=== PATIENT | male | born 1945 | race Caucasian/White ===

== ENCOUNTER → 2024-12-21 | Outpatient (CLI) | payer MEDICARE, BC, SELFPAY ==
[2024-12-21 12:09] LABS: Basophils % (Auto) 1 % (0-2.5); Eosinophils # (Auto) 0.1 Thou/mm3 (0.0-0.5); Eosinophils % (Auto) 1 % (0-10); Hematocrit 44.7 % (41.0-53.0); Immature Granulocytes % (Auto) 0 % (0-0); Immature Granulocytes Auto 0.02 Thou/mm3 (0.00-0.00); Lymphocytes # (Auto) 1.8 Thou/mm3 (1.0-4.8); Lymphocytes % (Auto) 33 % (10-50); Mean Corpuscular HGB Conc 33.6 g/dl (31.0-37.0); Mean Corpuscular Hemoglobin 30.9 pg (25.0-35.0); Mean Corpuscular Volume 92 fL (80-100); Monocytes # (Auto) 0.5 Thou/mm3 (0.0-0.8); Monocytes % (Auto) 8 % (0-12); Neutrophils # (Auto) 3.2 Thou/mm3 (1.8-7.7); Neutrophils % (Auto) 57 % (37-80); Nucleated Red Blood Cell % 0 /100 WBC (0); Platelet Count 148 Thou/mm3 (140-440); RDW Standard Deviation 44.3 fL (35.1-43.9); Red Blood Count 4.85 Miln/mm3 (4.50-5.90); White Blood Count 5.6 Thou/mm3 (3.8-10.6)
[2024-12-21 12:24] LABS: Prostate Specific Antigen 0.21 ng/mL (0-4.00)
[2024-12-21 12:28] LABS: Alanine Aminotransferase 22 U/L (10-49); Albumin, Serum 4.2 gm/dL (3.4-4.8); Albumin/Globulin Ratio 2.1 (1.2-2.2); Alkaline Phosphatase 81 U/L (46-116); Anion Gap 6 (7-16); Aspartate Amino Transferase 30 U/L (0-34); BUN/Creatinine Ratio 26 Ratio (12-20); Blood Urea Nitrogen 26 mg/dL (9-23); Calcium 9.8 mg/dL (8.3-10.6); Calcium (Corrected) 9.8 mg/dL (8.5-10.1); Cardiac Risk Estimate 5.3 RATIO (4.0-6.7); Chloride 106 mMol/L (98-107); Cholesterol 291 mg/dL (132-200); Glucose 94 mg/dL (74-106); HDL Cholesterol 55 mg/dL (40-60); LDL Cholesterol,Calculated 219 mg/dL (0-130); Osmolality,Calculated 285 (275-295); Potassium 4.8 mMol/L (3.4-5.1); Sodium 141 mMol/L (136-145); Total Protein 6.2 gm/dL (5.7-8.2); Triglycerides 83 mg/dL (30-150); eGFR > 60 See Note
== END | disposition home or self-care (01) ==
LOC: COPL 11:35
PROVIDERS: PCP Internal Medicine Hospice and Palliative Medicine; Referring Provider Internal Medicine Hospice and Palliative Medicine; Visit Provider Internal Medicine Hospice and Palliative Medicine
DX: I10 Essential (primary) hypertension (principal); Z12.9 Encounter for screening for malignant neoplasm, site unspecified
CPT/HCPCS: 36415; 80053; 80061; 84153; 85025

== ENCOUNTER 2025-10-21 05:41 | Emergency (ER) | payer MEDICARE, BC, SELFPAY ==
[2025-10-21 05:42] VITALS: BMI 23.3
[2025-10-21 05:47] VITALS: BP 138/79; PULSE 61; RESP 18; TEMP 36.4; O2SAT 97
--- NOTE | 2025-10-21 05:50 | XR_ITS ---
EXAMINATION: AP chest single view TECHNIQUE: AP portable upright chest single view Date and time: October 21, 2025, 0611 hours INDICATIONS: Chest pain shortness of breath dizziness beginning 2 hours ago FINDINGS: Normal heart size No pneumonia or pulmonary edema Severe osteopenia IMPRESSION: No pneumonia or pulmonary edema
--- NOTE | 2025-10-21 05:51 | PD.EDRME ---
Rapid Medical Screening Exam RME Arrival date/time: 10/21/25 05:41 80M with history of BPH presents to ED with 1 hour of sudden burning chest pain and dizziness after he had a non-bloody BM. Chief Complaint: Chest Pain Time Seen by Provider: 10/21/25 06:04 Vital signs: Vital Signs Temperature 97.5 F 10/21/25 05:47 Pulse Rate 61 10/21/25 05:47 Respiratory Rate 18 10/21/25 05:47 Blood Pressure 138/79 H 10/21/25 05:47 Pulse Oximetry (%) 97 10/21/25 05:47 Oxygen Delivery Method Room Air 10/21/25 05:47 Exam: Clear lungs and normal WOB. RRR. Speech normal. No ab tenderness. Clinical Impression: ACS vs PE vs gastritis/GERD vs vasovagal response
[2025-10-21 05:58] VITALS: PULSE 72
[2025-10-21] MEDS: ONDANSETRON ODT 4 MG TABRAP PO (06:03)
--- NOTE | 2025-10-21 06:17 | EDNOTE_ITS ---
ED Chest Pain RME/HPI General Chief Complaint: Chest Pain Stated Complaint: CHEST PAIN, DIZZINESS, NAUSEA Time Seen by Provider: 10/21/25 06:04 Arrival date/time: 10/21/25 05:41 RME / HPI RME / HPI narrative: 10/21/25 05:41 80M with history of BPH presents to ED with 1 hour of sudden burning chest pain and dizziness after he had a non-bloody BM. DR CRAVEN MAIN ED EVALUATION: 80 yo male patient with no significant past medical history c/o substernal/epigastric chest pain with numbness radiating to the left axilla which woke him from sleep lasting approximately 45 minutes. Patient states he thought he may be having a heart attack. Last time he had similar symptoms was 30 years ago and had a negative angiogram. Takes doxazosin for BPH. No h/o smoking. Pain resolved without intervention. Exam: Clear lungs and normal WOB. RRR. Speech normal. No ab tenderness. Impression: ACS vs PE vs gastritis/GERD vs vasovagal response Related Data Allergies Allergy/AdvReac Type Severity Reaction Status Date / Time nitroglycerin Allergy Severe LOOSING Verified 10/21/25 05:44 CONCOUSNESS Penicillins Allergy Severe HIVES Verified 10/21/25 05:44 Review of Systems Review of Systems Systems Reviewed: All systems reviewed, normal except as documented Narrative Review of Systems: CONST: Negative for fever, body aches and chills. HENT: Negative for neck pain/stiffness, headache, congestion, sore throat, swelling. EYES: Negative for discharge/pain or vision changes. RESP: Negative for cough/hemoptysis and shortness of breath. CV: Positive chest pain, negative difficulty breathing, palpitations. ABD: Negative pain, nausea, vomiting. : Negative increase frequency, dysuria, blood in urine or stool. MUSC: Negative for muscle aches, edema. SKIN: Negative rash, lesions/sores. NEURO: Negative headache, dizziness, weakness. ED Exam Narrative Physical exam: GENERAL APPEARANCE: alert and oriented x 4, well-developed, well-nourished, no acute distress HEENT: Normocephalic, atraumatic; pupils equal, round, reactive to light; EOMI; mucous membranes pink, moist; oropharynx clear NECK: Supple LUNGS: CTABL; no wheezes, no rales, no rhonchi HEART: Regular rate, regular rhythm; normal S1, S2; no murmurs ABDOMEN: non distended; normal BS; soft, no tenderness, no guarding, no rebound; no masses, no organomegaly, no hernia BACK: no CVA tenderness EXTREMITIES: atraumatic; no edema NEUROLOGIC: awake; alert and oriented x4; cranial nerves II-XII grossly intact; no focal sensory or motor deficits PSYCHIATRIC: appropriate mood and affect SKIN: warm, dry, normal color; no rashes Course Quality Measures none Orders Category Date Time Status Academic Success Coordinator Q4H START 00 Care 10/21/25 05:51 Completed EKG (ED ONLY) *Do not use* NOW Care 10/21/25 05:41 Completed EKG (ED Only) Stat Exams 10/21/25 05:41 Ordered XR chest 1V portable Stat Exams 10/21/25 05:50 Completed CBC Stat Lab 10/21/25 06:07 Completed Comprehensive Metabolic Panel Stat Lab 10/21/25 06:07 Completed Magnesium Stat Lab 10/21/25 06:07 Completed Partial Thromboplastin Time Stat Lab 10/21/25 06:07 Completed Prothrombin Time with INR Stat Lab 10/21/25 06:07 Completed Troponin I Stat Lab 10/21/25 06:07 Completed Troponin I Stat Lab 10/21/25 10:21 Completed Aspirin Med 10/21/25 05:50 Discontinued 325 mg PO X1 ONE Ondansetron Odt [Zofran Odt] Med 10/21/25 05:50 Discontinued 4 mg PO X1 ONE Vital Signs Vital signs: Vital Signs Temperature 97.5 F 10/21/25 05:47 Pulse Rate 61 10/21/25 05:47 Respiratory Rate 18 10/21/25 05:47 Blood Pressure 138/79 H 10/21/25 05:47 Pulse Oximetry (%) 97 10/21/25 05:47 Oxygen Delivery Method Room Air 10/21/25 05:47 Chest Pain Patient data External records reviewed:: [facility] previous records (No previous records) Clinical information provided by:: patient Social determinants that could affect healthcare access:: none Patient has the following chronic illnesses:: BPH How is presenting disease/condition affected by chronic disease/condition?: uneffected by Evaluation data The following diagnostics were reviewed and interpreted by me:: lab results, radiology exam(s) and EKG tracing(s) Lab and/or radiology exams considered but not ordered:: none Interpretation Summary: Chest Xray 1 view AP portable interpreted by me: good inspiratory effort, minimal rotation, normal mediastinum, trachea midline, normal bony alignment, normal cardiac shadow, diaphragms well-defined, no effusions, lung barton clear, gastric bubble visualized below left diaphragm, normal pulmonary artery contour, no acute process EKG interpreted by me: Sinus rhythm 62, regularly irregular, normal axis, no acute ischemic changes Lab results interpreted by me: CBC and chemistry unremarkable, troponin not elevated, all interpreted as within normal limits Medications / Prescriptions Medications or Prescriptions considered but not ordered:: Considered nitroglycerin, considered heparin Medication administrations:: Medication Administration History Discontinued Medications Aspirin (Aspirin 325 Mg Tablet) 325 mg PO X1 ONE Stop: 10/21/25 05:51 Last Admin: 10/21/25 06:03 Dose: 325 mg Documented By: SERAFIN Ondansetron HCl (Ondansetron Odt 4 Mg Tabrap) 4 mg PO X1 ONE; Protocol Stop: 10/21/25 05:51 Last Admin: 10/21/25 06:03 Dose: 4 mg Documented By: SERAFIN as above Consultations Consultation(s) initiated? (list below): No Diagnosis Chest Pain Differential Diagnosis: stable angina, unstable angina pectoris, atypical chest pain, st elevation myocardial infarction, costochondritis and chest pain Most likely diagnosis given after review of the tests above:: Chest pain Admission Indicated Admission indicated?: not indicated Admission Request Was there a request for admission?: No Disposition Plan Disposition Plan: Discharge Discharge Attestation Discharge Attestation: The patient and all family members were given an opportunity to ask questions and understood the discharge instructions. Discharge instructions specifically effects, indications for sooner follow up or return to the emergency department, and the expected course of current diagnosis. Patient condition: Stable Discharge Plan Plan Patient Disposition: HOME (Self Care) Prescriptions/Referrals Referrals: Michael Randall MD [Primary Care Provider] - In 1 week Problem List Clinical Impression: Chest pain, Epigastric abdominal pain Patient/Caregiver Discharge Instructions Education Materials: ED Chest Pain, Uncertain Cause, ED Epigastric Pain (Uncertain Cause) Print Language: Eritrean Stand Alone Forms: [facility] Award Info., Patient Portal Info Letter
[2025-10-21 06:40] LABS: Basophils # (Auto) 0.0 Thou/mm3 (0.0-0.2); Basophils % (Auto) 0 % (0-2.5); Eosinophils # (Auto) 0.1 Thou/mm3 (0.0-0.5); Eosinophils % (Auto) 1 % (0-10); Hematocrit 42.8 % (41.0-53.0); Hemoglobin 14.4 g/dL (13.5-16.0); Immature Granulocytes Auto 0.02 Thou/mm3 (0.00-0.00); Lymphocytes # (Auto) 1.8 Thou/mm3 (1.0-4.8); Lymphocytes % (Auto) 20 % (10-50); Mean Corpuscular HGB Conc 33.6 g/dl (31.0-37.0); Mean Corpuscular Hemoglobin 31.0 pg (25.0-35.0); Mean Corpuscular Volume 92 fL (80-100); Monocytes # (Auto) 0.5 Thou/mm3 (0.0-0.8); Monocytes % (Auto) 6 % (0-12); Neutrophils # (Auto) 6.5 Thou/mm3 (1.8-7.7); Neutrophils % (Auto) 73 % (37-80); Nucleated Red Blood Cell # 0.00 Thou/mm3 (0.00-0.00); Nucleated Red Blood Cell % 0 /100 WBC (0); Platelet Count 148 Thou/mm3 (140-440); RDW Standard Deviation 42.9 fL (35.1-43.9); Red Blood Count 4.65 Miln/mm3 (4.50-5.90); White Blood Count 8.9 Thou/mm3 (3.8-10.6)
[2025-10-21 07:07] LABS: Alanine Aminotransferase 18 U/L (10-49); Albumin, Serum 4.3 gm/dL (3.4-4.8); Albumin/Globulin Ratio 2.0 (1.2-2.2); Alkaline Phosphatase 77 U/L (46-116); Anion Gap 10 (7-16); Aspartate Amino Transferase 30 U/L (0-34); BUN/Creatinine Ratio 20 Ratio (12-20); Bilirubin,Total 0.9 mg/dL (0.3-1.2); Blood Urea Nitrogen 20 mg/dL (9-23); Calcium 9.0 mg/dL (8.3-10.6); Calcium (Corrected) 9.0 mg/dL (8.5-10.1); Carbon Dioxide 24.7 mMol/L (20.0-31.0); Chloride 108 mMol/L (98-107); Creatinine (Component) 1.0 mg/dL (0.6-1.3); Estimated Creatinine Clearance 49.5 mL/min (>60); Globulin 2.2 gm/dL (2.3-3.5); Glucose 151 mg/dL (74-106); Magnesium 2.0 mg/dL (1.6-2.6); Osmolality,Calculated 290 (275-295); Potassium 4.0 mMol/L (3.4-5.1); Sodium 143 mMol/L (136-145); Total Protein 6.5 gm/dL (5.7-8.2); Troponin I < 0.020 ng/mL (0.0-0.045); eGFR > 60 See Note
[2025-10-21 07:09] LABS: INR 1.0 (0.9-1.3); Partial Thromboplastin Time 26.7 Seconds (22.0-36.0); Prothrombin Time 10.8 Seconds (9.0-12.2)
[2025-10-21 07:27] VITALS: PULSE 54
[2025-10-21 10:52] VITALS: BP 123/61; PULSE 59; RESP 16; TEMP 36.5; O2SAT 98
[2025-10-21 11:18] LABS: Troponin I < 0.020 ng/mL (0.0-0.045)
== END 2025-10-21 11:35 | disposition home or self-care (01) ==
PROVIDERS: Physician Assistant; Emergency Provider Emergency Medicine; PCP Internal Medicine Hospice and Palliative Medicine
DX: R07.9 Chest pain, unspecified (principal); R10.13 Epigastric pain; I49.1 Atrial premature depolarization
CPT/HCPCS: 36415; 71045; 80053; 83735; 84484; 85025; 85610; 85730; 93005; 99283; Q0162; A9270